=== PATIENT | male | born 1985 | race Caucasian/White ===

== ENCOUNTER 2020-11-29 22:29 | Emergency (ER) | payer OTHER, SELFPAY ==
[2020-11-29 22:41] VITALS: BP 135/91; PULSE 89; RESP 18; TEMP 36.4; O2SAT 98
--- NOTE | 2020-11-29 23:08 | PC.NURSE ---
Pt reports he was skateboarding and fell, hitting chin. denies loc. denies pain anywhere else. c/o lac to anterior medial chin with bleeding controlled c gauze in place on arrival. a/o x 4. no s/s of distress.
--- NOTE | 2020-11-29 23:21 | ED.WOUNDLAC ---
HPI - Wound/Laceration General Chief Complaint: Wound/Laceration Stated Complaint: chin lac Time Seen by Provider: 11/29/20 23:21 Source: patient Mode of arrival: ambulatory Limitations: no limitations History of Present Illness HPI narrative: Patient is a 35-year-old male complaining of a laceration on his chin after it hit pavement while skateboarding. Denies any loss of consciousness. Patient denies any head, neck, back, chest, hip or any extremity pain/injury Related Data Home Medications Medication Instructions Recorded Confirmed No Home Medications 09/18/20 11/29/20 Allergies Allergy/AdvReac Type Severity Reaction Status Date / Time No Known Allergies Allergy Unverified 11/29/20 22:29 Review of Systems Review of Systems: All systems reviewed & are unremarkable except as noted in HPI and below Constitutional: Constitutional: Reports as per HPI PMFSH Surgical History Surgical History History of colonoscopy hemorrhoids History of knee surgery History of BL ACL repairs, RT meniscus repair History of tonsillectomy Family History Family History Father Genetic disorder Mother Cerebrovascular accident Grandparent Heart disease Cancer Social History Social History Smoking packs per day: 1 Smoking cigarettes per day: 20.0 Years smoked: 4 Smoking pack-years: 4.00 Smoking status: Former smoker Tobacco type: cigarettes Second hand tobacco smoke exposure: No Smoking end date: 02/07/13 Alcohol intake: current Substance use: never Substance use type: does not use Gender identity (if verbalized by the patient): Male Sexual Orientation (if Verbalized by the Patient): Straight or Heterosexual Exam Const: General: no acute distress and alert Orientation/consciousness: patient oriented x3 HENMT: Ears: external ears normal General nose exam: Normal external nose present, Normal nares present, no nasal discharge noted and no epistaxis Face and sinus: no sinus tenderness Mouth: Yes lip normal and Yes moist mucous membranes Teeth and gingiva: dentition normal Throat: posterior oropharynx normal Other: Normocephalic atraumatic 2 cm superficial laceration on the chin Eyes: Conjunctivae: conjunctivae normal Neck: Neck: normal visual inspection Other: Negative for vertebral tenderness Resp: Effort & Inspection: normal respiratory effort Neuro: General: patient oriented x3, moves all extremities and no meningeal signs Extrem: General: normal to inspection Course Vital Signs Vital signs: Vital Signs Temperature 36.4 C 11/29/20 22:41 Pulse Rate 89 11/29/20 22:41 Respiratory Rate 18 11/29/20 22:41 Blood Pressure 135/91 H 11/29/20 22:41 Pulse Oximetry 98 11/29/20 22:41 Temperature 36.4 C 11/29/20 22:41 Pulse Rate 89 11/29/20 22:41 Respiratory Rate 18 11/29/20 22:41 Blood Pressure 135/91 H 11/29/20 22:41 Pulse Oximetry 98 11/29/20 22:41 Procedures Laceration Laceration 1: Date: 11/29/20 Time: 23:25 Site: other (mentum) Size (cm): 2 Description: linear and clean Depth: simple, single layer Pre-repair: wound explored and irrigated ====== Skin Level ====== Skin layer closed with: dermabond ====== Subcutaneous Layer ====== ====== Muscle Layer ====== ====== Tendon Layer ====== Discharge Plan Discharge Clinical Impression: Chin laceration Qualifiers: Encounter type: initial encounter Qualified Code(s): S01.81XA - Laceration without foreign body of other part of head, initial encounter Patient Disposition: Home, Self-Care Condition: Improved Instructions: Skin Adhesive Care (ED) Prescriptions: No Action No Home Medications RF: 0 Follow-up/Referrals: [facility]
[2020-11-29] MEDS: TETANUS,DIPHTHERIA,AC PERTUSSIS ADULT (0.5 ML) BOOSTRIX IM (23:41)
== END 2020-11-29 23:54 | disposition home or self-care (01) ==
PROVIDERS: Emergency Provider Emergency Medicine; PCP Family Medicine
DX: S01.81XA Laceration without foreign body of other part of head, initial encounter (principal); Z23 Encounter for immunization; Z87.891 Personal history of nicotine dependence; V00.131A Fall from skateboard, initial encounter; Y93.51 Activity, roller skating (inline) and skateboarding
CPT/HCPCS: 12011; 90471; 90715; 99282